=== PATIENT | male | born 1955 | race Caucasian/White ===

== ENCOUNTER 2022-08-06 04:17 | Day surgery (SDC) | payer BC ==
[2022-07-31 14:05] VITALS: BMI 24.4
[2022-08-06 07:49] VITALS: RESP 16
[2022-08-06] MEDS ORDERED: MIDAZOLAM HCL 2 MG/2 ML SINGLE DOSE VIAL ONE (09:47)
[2022-08-06] MEDS ORDERED: ONDANSETRON 4 MG/2 ML VIAL ONE (11:15)
[2022-08-06 12:50] VITALS: BP 135/81; PULSE 60; TEMP 97.5
== END 2022-08-06 12:51 | disposition home or self-care (01) ==
LOC: JASU-SURG 04:17
PROVIDERS: ATTEND Urology
PROC: 0TF4XZZ Fragmentation in Left Kidney Pelvis, External Approach (ICD-10-PCS; principal; 2022-08-06 09:30)
DX: N20.0 Calculus of kidney (principal)